=== PATIENT | female | born 2000 | race Caucasian/White ===

== ENCOUNTER 2021-11-20 12:41 | Outpatient (CLI) | payer OTHER | END 2021-11-20 12:42 | disposition home or self-care (01) | LOC: SCSMRI 12:41 | PROVIDERS: ATTEND Family Medicine | DX: S06.9X9A Unspecified intracranial injury with loss of consciousness of unspecified duration, initial encounter (principal); F07.81 Postconcussional syndrome | CPT/HCPCS: 70553 ==